=== PATIENT | male | born 1995 | race Caucasian/White ===

== ENCOUNTER 2021-10-11 19:34 | Emergency (ER) | payer BC, SELFPAY ==
[2021-10-11] MEDS ORDERED: Ketorolac Tromethamine 30 MG/ML VIAL ONE (20:11)
[2021-10-11] MEDS ORDERED: Boostrix 0.5 ML (Tdap) VIAL ONE (20:11)
[2021-10-11] MEDS ORDERED: Bacitracin 1 PK ONE (20:40)
== END 2021-10-11 20:56 | disposition home or self-care (01) ==
LOC: BURERS 19:34
DX: S41.141A Puncture wound with foreign body of right upper arm, initial encounter (principal); S00.81XA Abrasion of other part of head, initial encounter; S60.512A Abrasion of left hand, initial encounter; V89.2XXA Person injured in unspecified motor-vehicle accident, traffic, initial encounter; Z23 Encounter for immunization
CPT/HCPCS: 90471; 90715; 96372; J1885